=== PATIENT | female | born 1970 | race African-American/Black ===

== ENCOUNTER 2023-04-25 16:54 | Emergency (ER) | payer MEDICARE, MEDICAID ==
[~2023-04-25] VITALS: Ht 170.2 cm; Wt 105.0 kg
[2023-04-25 17:00] VITALS: O2SAT 98
[2023-04-25 19:06] LABS: BASOPHILS % 0.7 % (0.0-2.0); EOSINOPHILS % 1.5 % (0.0-5.0); HEMATOCRIT. 42.8 % (36.0-48.0); HEMOGLOBIN. 14.5 g/dL (12.0-16.0); LYMPHOCYTES % 47.6 % (20.0-50.0); MEAN CORPUSCULAR HEMOGLOBIN 32.4 pg (28.0-32.0); MEAN CORPUSCULAR HGB CONC 33.8 g/dL (31.0-37.0); MEAN CORPUSCULAR VOLUME 95.8 fL (81.0-99.0); MEAN PLATELET VOLUME 8.5 fl (7.4-10.4); MONOCYTES % 6.7 % (2.0-8.0); NEUTROPHILS % 43.5 % (40.0-76.0); PLATELET 269 x1000/uL (130-400); RED BLOOD CELL COUNT 4.47 mill/uL (4.2-5.4); WHITE BLOOD COUNT 6.7 x1000/uL (4.5-11.0)
[2023-04-25 19:23] LABS: ALANINE AMINOTRANSFERASE 20 IU/L (10-49); ALBUMIN 4.8 g/dL (3.2-4.8); ASPARTATE AMINOTRANSFERASE 31 IU/L (<34); BILIRUBIN TOTAL 0.8 mg/dL (0.1-1.0); CALCIUM 9.1 mg/dL (8.7-10.4); CARBON DIOXIDE 28 mEq/L (21-32); CHLORIDE 105 mEq/L (98-107); CREATININE 0.6 mg/dL (0.6-1.0); GLUCOSE 83 mg/dL (70-105); POTASSIUM 3.6 mEq/L (3.5-5.1); PROTEIN TOTAL 8.2 g/dL (6.0-8.3); SODIUM 143 mEq/L (136-145); UREA NITROGEN BLOOD 10 mg/dL (9-23)
[2023-04-25] MEDS: OXYCODONE HCL/ACETAMINOPHEN 5/325MG TABLET PO ONE (20:41)
[2023-04-26 00:28] LABS: HCG SCREEN NEGATIVE
[2023-04-26] MEDS: OXYCODONE HCL/ACETAMINOPHEN 5/325MG TABLET PO ONE (01:38)
[2023-04-26 01:39] VITALS: BP 134/76; PULSE 88; RESP 22; TEMP 98.6
== END 2023-04-26 01:40 | disposition home or self-care (01) ==
LOC: ER 16:54
DX: N93.9 Abnormal uterine and vaginal bleeding, unspecified (principal); D25.9 Leiomyoma of uterus, unspecified; I11.0 Hypertensive heart disease with heart failure; I50.9 Heart failure, unspecified; I48.91 Unspecified atrial fibrillation; J44.9 Chronic obstructive pulmonary disease, unspecified; E11.9 Type 2 diabetes mellitus without complications
CPT/HCPCS: 36415; 74176; 76830; 76856; 80053; 81025; 84703; 85025; 86850; 86900; 99285

== ENCOUNTER 2023-05-23 20:25 | Emergency (ER) | payer MEDICARE, MEDICAID ==
[~2023-05-23] VITALS: Ht 165.1 cm; Wt 95.0 kg
[2023-05-23 20:28] VITALS: O2SAT 98
[2023-05-23 21:41] LABS: EOSINOPHILS % 2.2 % (0.0-5.0); HEMATOCRIT. 41.4 % (36.0-48.0); LYMPHOCYTES % 40.6 % (20.0-50.0); MEAN CORPUSCULAR HEMOGLOBIN 32.3 pg (28.0-32.0); MEAN CORPUSCULAR HGB CONC 33.8 g/dL (31.0-37.0); MEAN CORPUSCULAR VOLUME 95.5 fL (81.0-99.0); MEAN PLATELET VOLUME 8.6 fl (7.4-10.4); MONOCYTES % 5.8 % (2.0-8.0); NEUTROPHILS % 50.4 % (40.0-76.0); PLATELET 298 x1000/uL (130-400); RED BLOOD CELL COUNT 4.34 mill/uL (4.2-5.4); RED CELL DISTRIBUTION WIDTH 14.3 % (11.6-14.6); WHITE BLOOD COUNT 6.6 x1000/uL (4.5-11.0)
[2023-05-23 22:00] LABS: ALANINE AMINOTRANSFERASE 19 IU/L (10-49); ALBUMIN 4.4 g/dL (3.2-4.8); ASPARTATE AMINOTRANSFERASE 29 IU/L (<34); CALCIUM 8.8 mg/dL (8.7-10.4); CARBON DIOXIDE 24 mEq/L (21-32); CHLORIDE 106 mEq/L (98-107); CREATININE 0.7 mg/dL (0.6-1.0); GLUCOSE 113 mg/dL (70-105); POTASSIUM 3.7 mEq/L (3.5-5.1); PROTEIN TOTAL 7.3 g/dL (6.0-8.3); SODIUM 139 mEq/L (136-145); TROPONIN I HIGH SENSITIVITY 19 ng/L (3.0-34); UREA NITROGEN BLOOD 14 mg/dL (9-23)
[2023-05-23 22:54] VITALS: BP 116/80; PULSE 94; RESP 16; TEMP 98.6
== END 2023-05-23 22:57 | disposition home or self-care (01) ==
LOC: ER 20:25
DX: I48.91 Unspecified atrial fibrillation (principal); I11.0 Hypertensive heart disease with heart failure; I50.9 Heart failure, unspecified; J44.9 Chronic obstructive pulmonary disease, unspecified; E11.9 Type 2 diabetes mellitus without complications
CPT/HCPCS: 36415; 71045; 80053; 83880; 84484; 85025; 99284

== ENCOUNTER 2024-05-25 05:31 | Inpatient (IN) | payer MEDICARE, MEDICAID ==
[~2024-05-25] VITALS: Ht 170.2 cm; Wt 122.5 kg
[~2024-05-25 05:31] MED LIST: ALBU18HF2 IH; AMIT10TA6 PO; APIX5TAB PO; ASPI-1497 PO; BUME1TAB33 PO; DAPA10TA PO; DIGO125T PO; FLUT1BLS12 IH; GLIP10TA17 PO; METO-385 PO; MONT-39 PO; NAPR-681 PO; OMEP20CA14 PO; OXYC30TA2 PO; POTA-204 PO; SACU1TAB PO
[2024-05-25 06:13] LABS: BASOPHILS % 0.9 % (0.0-2.0); EOSINOPHILS % 2.5 % (0.0-5.0); HEMATOCRIT. 40.9 % (36.0-48.0); HEMOGLOBIN. 13.2 g/dL (12.0-16.0); LYMPHOCYTES % 47.5 % (20.0-50.0); MEAN CORPUSCULAR HEMOGLOBIN 30.8 pg (28.0-32.0); MEAN CORPUSCULAR HGB CONC 32.3 g/dL (31.0-37.0); MEAN CORPUSCULAR VOLUME 95.3 fL (81.0-99.0); MEAN PLATELET VOLUME 8.6 fl (7.4-10.4); MONOCYTES % 6.3 % (2.0-8.0); NEUTROPHILS % 42.8 % (40.0-76.0); PLATELET 235 x1000/uL (130-400); RED BLOOD CELL COUNT 4.29 mill/uL (4.2-5.4); RED CELL DISTRIBUTION WIDTH 14.5 % (11.6-14.6); WHITE BLOOD COUNT 6.6 x1000/uL (4.5-11.0)
[2024-05-25 06:24] LABS: CHLORIDE 107 mEq/L (98-107); POTASSIUM 3.7 mEq/L (3.5-5.1); SODIUM 143 mEq/L (136-145)
[2024-05-25 06:25] LABS: CALCIUM 9.3 mg/dL (8.7-10.4); CARBON DIOXIDE 29 mEq/L (21-32)
[2024-05-25 06:30] LABS: CREATININE 0.6 mg/dL (0.6-1.0); GLUCOSE 124 mg/dL (70-105); UREA NITROGEN BLOOD 12 mg/dL (9-23)
[2024-05-25 06:32] LABS: ALANINE AMINOTRANSFERASE 14 IU/L (10-49); ALBUMIN 3.8 g/dL (3.2-4.8); ASPARTATE AMINOTRANSFERASE 17 IU/L (<34); BILIRUBIN DIRECT 0.3 mg/dL (<=3.0); PROTEIN TOTAL 6.8 g/dL (6.0-8.3); TROPONIN I HIGH SENSITIVITY 15 ng/L (3.0-34)
[2024-05-25 06:41] LABS: PARTIAL THROMBOPLASTIN TIME 26.6 sec (23.4-31.0); PROTHROMBIN TIME 11.1 sec (9.6-11.0)
[2024-05-25] MEDS ORDERED: ONDANSETRON HCL 4MG/2ML INJ IV PRN (08:45)
[2024-05-25 10:00] VITALS: BP 128/78; PULSE 89; RESP 20; TEMP 36.5; O2SAT 100
[2024-05-25] MEDS: AMOXICILLIN 500MG CAPSULE PO SCH (10:14)
[2024-05-25] MEDS: APIXABAN 5 MG TABLET PO SCH (10:14)
[2024-05-25 10:18] VITALS: BP 128/78; PULSE 89; RESP 20; TEMP 36.5
[2024-05-25 12:00] VITALS: BP 120/75; PULSE 84; RESP 20; TEMP 36.7; O2SAT 99
[2024-05-25] MEDS: IPRATROPIUM/ALBUTEROL 0.5-3(2.5)MG/3ML NEB HHN SCH (12:00)
[2024-05-25] MEDS: FUROSEMIDE 40MG/4ML VIAL IVP NR (12:40)
[2024-05-25] MEDS: GUAIFENESIN-DM 200MG-20MG/10ML UDC PO PRN (12:40)
[2024-05-25] MEDS ORDERED: PREDNISONE 20MG TABLET PO SCH (13:30)
[2024-05-25] MEDS ORDERED: DEXTROSE 50% WATER 50ML SYRINGE IV PRN (14:00)
[2024-05-25] MEDS ORDERED: METO-411 PO (14:14)
[2024-05-25] MEDS ORDERED: HYDR-4009 PO (14:16)
[2024-05-25] MEDS ORDERED: HYDROCODONE/ACETAMINOPHEN 10/325MG TABLET PO PRN (14:37)
[2024-05-25] MEDS: METOPROLOL SUCCINATE 50MG ER TABLET PO SCH (15:20)
[2024-05-25] MEDS: DIGOXIN 125MCG TABLET PO SCH (15:20)
[2024-05-25 15:23] VITALS: PULSE 97; RESP 16; O2SAT 97
[2024-05-25 15:29] LABS: CLARITY URINE CLEAR (CLEAR); COLOR URINE YELLOW (YELLOW); GLUCOSE URINE 2+ (NEGATIVE); KETONES URINE NEGATIVE (NEGATIVE); LEUKOCYTE ESTERASE URINE NEGATIVE (NEGATIVE); NITRITE URINE NEGATIVE (NEGATIVE); OCCULT BLOOD URINE NEGATIVE (NEGATIVE); PROTEIN URINE NEGATIVE (NEGATIVE); UROBILINOGEN URINE 0.2 E.U./dL (0.2-1.0)
[2024-05-25] MEDS ORDERED: IPRATROPIUM/ALBUTEROL 0.5-3(2.5)MG/3ML NEB HHN PRN (15:30)
[2024-05-25 15:45] LABS: SQUAMOUS EPITHELIAL CELL URINE FEW /lpf (RARE/1+)
[2024-05-25 15:46] LABS: BACTERIA URINE NONE SEEN; RBC URINE 0-2 /hpf (0-2); WBC URINE 0-2 /hpf (0-2)
[2024-05-25] MEDS ORDERED: BUME0.5T5 PO (15:48)
[2024-05-25 16:00] VITALS: BP 113/74; PULSE 86; RESP 18; TEMP 37.1; O2SAT 97
[2024-05-25] MEDS ORDERED: NALOXONE HCL 0.4MG/ML VIAL IV PRN (16:00)
[2024-05-25] MEDS: BLOOD SUGAR DIAGNOSTIC STRIP TEST SCH (16:55)
[2024-05-25] MEDS: INSULIN LISPRO 100 UNITS/ML SUBCUT SCH (16:55)
[2024-05-25 17:03] LABS: TROPONIN I HIGH SENSITIVITY 11 ng/L (3.0-34)
[2024-05-25 20:00] VITALS: BP 118/73; PULSE 85; RESP 18; TEMP 36.3; O2SAT 96
[2024-05-25] MEDS: MAGNESIUM 2 G PREMIX 50 ML IV NR (20:00)
[2024-05-25] MEDS ORDERED: METOPROLOL SUCCINATE 50MG ER TABLET PO SCH ×2 (21:00)
[2024-05-25] MEDS: AMITRIPTYLINE 10MG TABLET PO SCH (22:08)
[2024-05-26] VITALS: BP 128/88; PULSE 90; RESP 20; TEMP 36.1; O2SAT 99
[2024-05-26 04:00] VITALS: BP 130/79; PULSE 99; RESP 20; TEMP 36.6; O2SAT 98
[2024-05-26 08:00] VITALS: BP 116/61; PULSE 81; RESP 20; TEMP 36.4; O2SAT 100
[2024-05-26] MEDS ORDERED: METOPROLOL SUCCINATE 50MG ER TABLET PO SCH (09:00)
[2024-05-26] MEDS: SACUBITRIL/VALSARTAN 24MG/26MG TABLET PO SCH (09:10)
[2024-05-26] MEDS: METOPROLOL SUCCINATE 50MG ER TABLET PO SCH (09:10)
[2024-05-26 12:00] VITALS: BP 126/79; PULSE 84; RESP 20; TEMP 36.6; O2SAT 100
[2024-05-26] MEDS: FUROSEMIDE 40MG/4ML VIAL IVP SCH (13:16)
[2024-05-26] MEDS: AMOXICILLIN 500MG CAPSULE PO NR (14:09)
[2024-05-26] MEDS ORDERED: BACL-141 PO (15:58)
[2024-05-26 16:00] VITALS: BP 116/70; PULSE 65; RESP 18; TEMP 36.6; O2SAT 97
[2024-05-26] MEDS: DIGOXIN 125MCG TABLET PO SCH (17:05)
[2024-05-26 20:00] VITALS: BP 136/76; PULSE 85; RESP 20; TEMP 36.1; O2SAT 95
[2024-05-26] MEDS: AMOXICILLIN 500MG CAPSULE PO SCH (20:57)
[2024-05-26] MEDS ORDERED: AMITRIPTYLINE 10MG TABLET PO SCH (21:00)
[2024-05-27] VITALS: BP 118/79; PULSE 71; RESP 18; TEMP 36.5; O2SAT 98
[2024-05-27 04:00] VITALS: BP 120/82; PULSE 89; RESP 18; TEMP 36.1; O2SAT 97
[2024-05-27 08:00] VITALS: BP 120/75; PULSE 88; RESP 18; TEMP 37; O2SAT 98
[2024-05-27] MEDS: FUROSEMIDE 20MG/2ML VIAL IVP SCH (11:53)
[2024-05-27 12:00] VITALS: BP 122/71; PULSE 89; RESP 16; TEMP 35.5; O2SAT 99
[2024-05-27 13:00] VITALS: BP 122/71; PULSE 89; TEMP 95.9; O2SAT 99
== END 2024-05-27 13:40 | disposition home or self-care (01) | DRG 291 ==
LOC: ER 05:31 → 8WST 07:52 → EDBEDREQ 07:55 → EDBEDREQTM 07:55
PROVIDERS: ADMIT Internal Medicine; ATTEND Internal Medicine
DX: I11.0 Hypertensive heart disease with heart failure (principal); I50.33 Acute on chronic diastolic (congestive) heart failure; J44.1 Chronic obstructive pulmonary disease with (acute) exacerbation; Z68.41 Body mass index [BMI] 40.0-44.9, adult; E66.9 Obesity, unspecified; G47.33 Obstructive sleep apnea (adult) (pediatric); Z20.822 Contact with and (suspected) exposure to COVID-19; E11.9 Type 2 diabetes mellitus without complications; I48.91 Unspecified atrial fibrillation; F32.A Depression, unspecified; K21.9 Gastro-esophageal reflux disease without esophagitis; Z79.899 Other long term (current) drug therapy
CPT/HCPCS: 36415; 71045; 80048; 80076; 81003; 82962; 83036; 83605; 83735; 83880; 84145; 84484; 85025; 87426; 93005; 99291; J1815; J1940; J3475